=== PATIENT | female | born 1970 | race Caucasian/White ===

== ENCOUNTER 2023-12-04 18:09 | Inpatient (IN) | payer BC, MEDICARE, OTHER ==
[~2023-12-04] VITALS: Ht 165.1 cm; Wt 99.8 kg
[~2023-12-04 18:09] MED LIST: CYMBALTA 60MG60 MG PO; DESYREL 100MG100 MG PO; NEURONTIN300 MG/CAP PO; NEXIUM 40MG40 MG PO; ZYRTEC 10MG10 MG PO
--- NOTE | 2023-12-04 20:30 | NUR ---
Patient accepted. Will be arriving via EMS.
[2023-12-04 21:45] VITALS: BP 81/57
[2023-12-04 21:52] VITALS: BP 89/60
[2023-12-04 21:57] VITALS: BP 81/57
[2023-12-04] MEDS ORDERED: Vasopressin 20 UNITS in NS 100 ML IV PRN (23:00)
[2023-12-04 23:15] VITALS: BP 83/48
[2023-12-04] MEDS ORDERED: AMITRIPTYLINE H50 M1 PO (23:24)
[2023-12-04] MEDS ORDERED: PERCOCET 325 MG1 TAB PO (23:24)
[2023-12-04] MEDS ORDERED: ALDACTONE50 MG PO (23:24)
[2023-12-04] MEDS ORDERED: ATARAX 25MG25 MG/TAB PO (23:25)
[2023-12-04] MEDS ORDERED: BUSPIRONE HCL7.5 MG PO (23:26)
[2023-12-04] MEDS ORDERED: BUMEX2 MG PO (23:26)
[2023-12-04] MEDS ORDERED: CENA K20 MEQ/15 PO (23:26)
[2023-12-04] MEDS ORDERED: DYAZIDE 25 MG-31 CAP PO (23:27)
[2023-12-04] MEDS ORDERED: FLEXERIL 1010 MG/TAB PO (23:27)
[2023-12-04] MEDS ORDERED: PRIL40 PO (23:28)
[2023-12-04] MEDS ORDERED: FLORINEF ACETA0.1 MG PO (23:28)
[2023-12-04] MEDS ORDERED: REGLAN 10MG10 MG/TAB PO ×2 (23:29)
[2023-12-04] MEDS ORDERED: ZOFRAN ODT4 MG PO (23:30)
[2023-12-04] MEDS ORDERED: LIPITOR20 MG PO (23:31)
[2023-12-04] MEDS ORDERED: NS 1,000 ML IV SCH (23:45)
[2023-12-05] VITALS (516 sets, daily range): BP systolic 83–103; BP diastolic 52–72; PULSE 86–104; TEMP 97.8–98.6; O2SAT 94–100
[2023-12-05] MEDS ORDERED: Albuterol/Ipratropium 3 MG-0.5 MG/3 ML Neb Soln IH PRN (00:45)
[2023-12-05 00:53] LABS: ARTERIAL BLD GAS O2 SATURATION 99.1 % (92-100); ARTERIAL BLD GAS TCO2 CT 21.5; ARTERIAL BLOOD GAS BASE EXCESS 0.2 (-2-2); ARTERIAL BLOOD GAS HCO3 20.7 meq/L (22-26); ARTERIAL BLOOD GAS pH 7.58 (7.35-7.45)
[2023-12-05 00:54] LABS: ARTERIAL BLOOD GAS PCO2 22.9 mmHg (35-45); ARTERIAL BLOOD GAS PO2 155.8 mmHg (80-100)
[2023-12-05 01:15] LABS: INR 1.4 (0.8-3.0); PROTHROMBIN TIME 15.4 SECONDS (9.7-12.8)
[2023-12-05 01:31] LABS: ALBUMIN 1.7 g/dL (3.5-5.0); BILIRUBIN,TOTAL 3.1 mg/dL (0.2-1.2); CREATININE, serum 0.95 mg/dL (0.57-1.11); MAGNESIUM 1.2 mg/dL (1.6-2.6); TOTAL PROTEIN 5.7 g/dl (6.2-8.1)
[2023-12-05 01:41] LABS: POTASSIUM 2.2 mEq/L (3.5-4.5)
[2023-12-05 01:52] LABS: BASO # 0.1 K/mm3 (0.0-0.2); BASO % 0.4 % (0.0-2.0); EOS # 0.2 K/mm3 (0.0-0.7); GRAN # 11.9 K/mm3 (1.4-6.5); GRAN % 78.4 % (42.2-75.2); HEMATOCRIT 30.4 % (37.0-47.0); HEMOGLOBIN 10.8 g/dl (12.5-16.0); LYMPH # 1.6 K/mm3 (1.2-3.4); LYMPH % 10.8 % (20.0-51.0); MEAN CELL VOLUME 102 fl (80.0-100.0); MEAN CORPUSCULAR HEMOGLOBIN 36 pg (27-31); MEAN CORPUSCULAR HGB CONC 36 g/dl (33.0-37.0); MEAN PLATELET VOLUME 9.8 fl (7.4-10.4); MONO # 1.3 K/mm3 (0.1-0.6); MONO % 8.3 % (1.7-9.3); PLATELET COUNT 227 K/mm3 (130-400); RED BLOOD COUNT 2.99 M/mm3 (4.10-5.30); REDCELL DISTRIBUTION WIDTH-CV 14.7 % (11.5-14.5)
[2023-12-05 01:58] LABS: TRICYCLIC ANTIDEPRESS URINE POSITIVE (NEGATIVE)
[2023-12-05] MEDS ORDERED: Potassium Chloride 100 ML IV SCH (02:00)
[2023-12-05] MEDS ORDERED: Magnesium Sulfate 4% 50 ML IV ONE (02:00)
[2023-12-05] MEDS ORDERED: *Potassium Replacement Protocol MC SCH (02:00)
[2023-12-05] MEDS ORDERED: Potassium Phoshate 10 MM in NS 250 ML IV ONE (02:00)
[2023-12-05 06:18] LABS: HEMOGLOBIN 10.6 g/dl (12.5-16.0); MEAN CELL VOLUME 102 fl (80.0-100.0); MEAN CORPUSCULAR HEMOGLOBIN 35 pg (27-31); MEAN CORPUSCULAR HGB CONC 35 g/dl (33.0-37.0); MEAN PLATELET VOLUME 9.7 fl (7.4-10.4); PLATELET COUNT 245 K/mm3 (130-400); RED BLOOD COUNT 3.01 M/mm3 (4.10-5.30); REDCELL DISTRIBUTION WIDTH-CV 14.9 % (11.5-14.5)
[2023-12-05 06:22] LABS: HEMATOCRIT 30.7 % (37.0-47.0)
[2023-12-05 06:38] LABS: ALBUMIN 1.6 g/dL (3.5-5.0); BILIRUBIN,TOTAL 3.1 mg/dL (0.2-1.2); CALCIUM 7.8 mg/dL (8.4-10.2); CREATININE, serum 0.87 mg/dL (0.57-1.11); TOTAL PROTEIN 5.6 g/dl (6.2-8.1)
--- NOTE | 2023-12-05 07:00 | NUR ---
Report received from CHRISTINA Ramirez; patient currently resting in bed with levo, NS, and electrolytes running through her peripheral IVs. Patient has 3 periperal IVs/INTs, and a Ba catheter in place; no other lines or tubes are in place at this time.
[2023-12-05 07:05] LABS: BAND 3 % (0-10); EOSINOPHIL 1 % (0-4); LYMPHOCYTE 13 % (20.0-51.0); NEUTROPHILS 75 % (42.0-75.2)
[2023-12-05 07:06] LABS: PLATELET ESTIMATE NORMAL (NORMAL); STOMATOCYTE 1+
[2023-12-05] MEDS ORDERED: Nicotine 21 MG DAILY PATCH TD SCH (09:00)
[2023-12-05] MEDS ORDERED: Cyanocobalamin (Vit B-12) 1,000 MCG TAB PO SCH (10:45)
[2023-12-05] MEDS ORDERED: Cholecalciferol (Vit D3) 1000 Units TAB PO SCH (10:45)
[2023-12-05] MEDS ORDERED: Folic Acid 1 MG TAB PO SCH (10:45)
[2023-12-05] MEDS ORDERED: Magnesium Sulfate 2 GM/50 ML IV SOLN IV ONE (10:45)
[2023-12-05] MEDS ORDERED: Thiamine 100 MG TAB PO SCH (10:45)
[2023-12-05] MEDS ORDERED: MACROBID 1100 MG/CAP PO (11:00)
[2023-12-05] MEDS ORDERED: CYMBALTA 60MG60 MG PO (11:04)
[2023-12-05] MEDS ORDERED: SINEQUAN 5050 MG/CAP PO (11:07)
[2023-12-05] MEDS ORDERED: cefTRIAXone 1 G in Water For Injection,Sterile 10 ML IV SCH (14:00)
--- NOTE | 2023-12-05 14:19 | NUR ---
dish room worker attended clinical rounds and met with patient and spouse to complete discharge assessment. Patient resides in her home, with spouse, in [place], [place]. Patient's primary care provider is Dr Gates in [place]. Patient is normally independent with her activities of daily living and spouse works outside the home. Patient and spouse state they previously completed advance directives, however lost them and wish to complete again. Worker provided advance paperwork and confirmed that we will wait until all of patient's confusion, possible due to infection, clears. Patient utilizes [facility] and they bubble pack meds for patient. Patient has a walker and spouse built a ramp into their house. Worker confirmed, with spouse, that patient has [employer] [place], Medicare A/B and . Discharge plan: Home with spouse.
[2023-12-05] MEDS ORDERED: Ibuprofen 200 MG TAB PO ONE (15:15)
[2023-12-06] VITALS (108 sets, daily range): BP systolic 87–122; BP diastolic 54–71; PULSE 76–98; TEMP 97.6–98.6; O2SAT 95–100
[2023-12-06 05:06] LABS: HEMOGLOBIN 10.4 g/dl (12.5-16.0); MEAN CORPUSCULAR HEMOGLOBIN 37 pg (27-31); MEAN CORPUSCULAR HGB CONC 34 g/dl (33.0-37.0); MEAN PLATELET VOLUME 9.4 fl (7.4-10.4); PLATELET COUNT 229 K/mm3 (130-400); RED BLOOD COUNT 2.85 M/mm3 (4.10-5.30); REDCELL DISTRIBUTION WIDTH-CV 14.9 % (11.5-14.5)
[2023-12-06 05:12] LABS: HEMATOCRIT 30.5 % (37.0-47.0); MEAN CELL VOLUME 107 fl (80.0-100.0)
[2023-12-06 05:18] LABS: MAGNESIUM 1.6 mg/dL (1.6-2.6); PHOSPHOROUS 2.4 mg/dL (2.3-4.7)
[2023-12-06 05:40] LABS: ALANINE AMINOTRANSFERASE 27 U/L (0-55); ALBUMIN 1.6 g/dL (3.5-5.0); ALKALINE PHOSPHATASE 334 U/L (40-150); ANION GAP 22 mmol/L (7-16); AST,SGOT 53 U/L (5-34); BILIRUBIN,TOTAL 2.3 mg/dL (0.2-1.2); BLOOD UREA NITROGEN < 5 mg/dL (10-20); CALCIUM 7.6 mg/dL (8.4-10.2); CHLORIDE 95 mEq/L (98-107); CREATININE, serum 0.67 mg/dL (0.57-1.11); GLUCOSE 76 mg/dL (70-99); SODIUM 139 mEq/L (136-145); TOTAL PROTEIN 4.9 g/dl (6.2-8.1)
[2023-12-06 05:42] LABS: POTASSIUM 2.5 mEq/L (3.5-4.5)
[2023-12-06 05:51] LABS: EOSINOPHIL 4 % (0-4); LYMPHOCYTE 14 % (20.0-51.0); METAMYELOCYTE 3 % (0-0); NEUTROPHILS 74 % (42.0-75.2)
[2023-12-06 05:52] LABS: PLATELET ESTIMATE NORMAL (NORMAL)
[2023-12-06] MEDS ORDERED: Potassium Chloride 100 ML IV SCH (07:00)
--- NOTE | 2023-12-06 07:38 | NUR ---
Report received from CHRISTINA Moran. Reviewed overnight events and labs. Pt remains on a little bit of levophed. Call light wihtin reach. Will continue with POC.
[2023-12-06] MEDS ORDERED: Magnesium Oxide 400 MG TAB PO SCH (10:44)
[2023-12-06] MEDS ORDERED: busPIRone 7.5 MG TABLET PO SCH (10:45)
[2023-12-06] MEDS ORDERED: Magnesium Sulfate 4% 50 ML IV ONE (10:45)
[2023-12-06] MEDS ORDERED: hydrOXYzine HCl 25 MG TAB PO PRN (10:45)
[2023-12-06] MEDS ORDERED: Fludrocortisone 0.1 MG TAB PO SCH (10:45)
[2023-12-06] MEDS ORDERED: Omeprazole 40 MG **** subs to Pantoprazole 40 MG PO SCH (10:45)
[2023-12-06] MEDS ORDERED: Doxepin 25 MG CAP PO SCH (10:46)
--- NOTE | 2023-12-06 11:25 | NUR ---
Data: Patient's accepted Fence Erector Supervisor visit offered during Fence Erector Supervisor rounds. Patient was sleeping; woke during visit. Assessment: Patient is feeling "closed-in" being in a room with no windows. Both desired prayer for discharge. Plan of care: Fence Erector Supervisor prayed for enough healing to go to another room; and for a quick discharge. Both thanked Fence Erector Supervisor for the visit. Chaplains will remain available as needed/requested while Patient is admitted to this hospital.
[2023-12-06] MEDS ORDERED: Metoclopramide 10 MG TAB PO SCH (12:00)
--- NOTE | 2023-12-06 17:48 | NUR ---
Report called to CHRISTINA Pradhan. All questions answered. Dressing to right IJ changed.
--- NOTE | 2023-12-06 18:49 | NUR ---
Patient arrived to the medical unit, alrt and oriented x 4, SBP 98/54. Getting fluis 125 mls\hr. Jaunice skin. RIJ triple lumen. Wound on RLE wrapped, CDI. Catheter wong in place, clear yellow output. Report will be given to night RN.
--- NOTE | 2023-12-06 20:30 | NUR ---
Initial shift assessment done- states having some chronic back pain, would like pain med if possible,, will call [facility] about pain and also B/P is borderline low 87/58, map 65. SCD,s put on pt, Ba with clear femi urine, did put on a mepilex to coccyx,, has 2 dime size open areas ,,, IV fluids of NS at 125cc/hr to Right IJ. Pt alert/oriented x4, is jaundiced.
[2023-12-06] MEDS ORDERED: Amitriptyline 50 MG TAB PO SCH (21:00)
--- NOTE | 2023-12-06 21:00 | NUR ---
Called [facility] regarding low blood pressure 87/58 with MAP of 65,, she states she is ok with that- wants the MAP to be 65,,, aslo talked about pts chronic back pain-- pt would like something for the pain. [facility] did order a one time Oxycodone 5 mg p.o order,,, pt very appreciative of getting something for pain.
[2023-12-06] MEDS ORDERED: oxyCODONE 5 MG TAB PO ONE (21:30)
[2023-12-07 03:55] VITALS: BP 92/57; PULSE 90; TEMP 98.2
--- NOTE | 2023-12-07 05:53 | NUR ---
Slept very good, does not want to be repositioned at this time-states shes really comfortable, 500cc out of Ba this shift, denies pain at this time-
[2023-12-07 08:09] VITALS: BP 93/66; PULSE 97; TEMP 98.3
[2023-12-07 08:48] LABS: MEAN CELL VOLUME 108 fl (80.0-100.0); MEAN CORPUSCULAR HGB CONC 33 g/dl (33.0-37.0); MEAN PLATELET VOLUME 9.8 fl (7.4-10.4); PLATELET COUNT 214 K/mm3 (130-400); RED BLOOD COUNT 2.62 M/mm3 (4.10-5.30)
[2023-12-07 08:50] LABS: HEMATOCRIT 28.3 % (37.0-47.0); HEMOGLOBIN 9.3 g/dl (12.5-16.0); MEAN CORPUSCULAR HEMOGLOBIN 35 pg (27-31)
[2023-12-07 09:21] LABS: ALBUMIN 1.3 g/dL (3.5-5.0); ALKALINE PHOSPHATASE 304 U/L (40-150); ANION GAP 16 mmol/L (7-16); BILIRUBIN,TOTAL 1.9 mg/dL (0.2-1.2); CALCIUM 7.6 mg/dL (8.4-10.2); CHLORIDE 100 mEq/L (98-107); CREATININE, serum 0.59 mg/dL (0.57-1.11); POTASSIUM 3.1 mEq/L (3.5-4.5); SODIUM 139 mEq/L (136-145); TOTAL PROTEIN 4.8 g/dl (6.2-8.1)
[2023-12-07 09:24] LABS: BLOOD UREA NITROGEN < 5 mg/dL (10-20); GLUCOSE 60 mg/dL (70-99)
[2023-12-07 10:02] LABS: ALANINE AMINOTRANSFERASE 20 U/L (0-55)
--- NOTE | 2023-12-07 10:19 | NUR ---
Patient resting in bed, at bedside. PT alert and oriented, getting fluids per orders. Cath wong in place, clear fmei output. BLE edema, dressing in RLE, CDI. Assessment completed, meds given. No further needs at this time. Call light within reach.
[2023-12-07 10:42] LABS: AST,SGOT 55 U/L (5-34)
[2023-12-07] MEDS ORDERED: Potassium Bicarbonate/Citrate 20 MEQ Effervescent TAB PO SCH (11:30)
[2023-12-07 12:09] VITALS: BP 90/60; PULSE 95; TEMP 98.1
[2023-12-07 12:13] LABS: BAND 3 % (0-10); LYMPHOCYTE 29 % (20.0-51.0); NEUTROPHILS 65 % (42.0-75.2)
[2023-12-07 12:14] LABS: ANISOCYTOSIS 1+; PLATELET ESTIMATE NORMAL (NORMAL)
[2023-12-07] MEDS ORDERED: oxyCODONE 5 MG TAB PO ONE (14:45)
--- NOTE | 2023-12-07 16:19 | NUR ---
Patient assisted to the commode with help. PT had a large loose mustard BM. Pt complains of pain in her back, call placed to Dr. Last, ordered a dose of oxy 5mg once. Pt educated about her low BP and opiod use. Pt stated understanding.
[2023-12-07 17:02] VITALS: BP 87/59; PULSE 109
[2023-12-07 19:32] VITALS: BP 113/63; PULSE 107; TEMP 97.6
--- NOTE | 2023-12-07 20:30 | NUR ---
Shift assessment complete. NS running at 125mL/hr. Patient reporting headache and back pain /. Denies any chest pain, palpitations, shortness of breath, nausea. Currently stable on room air. Call light is within reach. Bed is locked and in low position.
[2023-12-07] MEDS ORDERED: Acetaminophen 325 MG TAB PO PRN (21:00)
[2023-12-08 01:01] VITALS: BP 98/53; PULSE 105; TEMP 100.2
[2023-12-08 05:26] VITALS: BP 99/61; PULSE 95; TEMP 97.9
[2023-12-08 08:00] VITALS: BP 110/67; PULSE 99; TEMP 98.7
[2023-12-08 09:02] LABS: ANION GAP 14 mmol/L (7-16); CALCIUM 7.7 mg/dL (8.4-10.2); CHLORIDE 103 mEq/L (98-107); CREATININE, serum 0.54 mg/dL (0.57-1.11); MAGNESIUM 1.5 mg/dL (1.6-2.6); POTASSIUM 3.6 mEq/L (3.5-4.5); SODIUM 139 mEq/L (136-145)
[2023-12-08 09:04] LABS: BLOOD UREA NITROGEN < 5 mg/dL (10-20); GLUCOSE 68 mg/dL (70-99)
--- NOTE | 2023-12-08 09:15 | NUR ---
PT LAYING IN BED UPON ENTERING. ASSESSMENT DONE, MEDS GIVEN PER ORDER. PT REPORTS 8/10 BACK PAIN AND GIVEN PRN TYLENOL. MEI DRAINING WITHOUT DIFFICULTY. RIGHT IJ IN PLACE, ALL PORTS FLUSH WITH BLOOD RETURN. NS RUNNING AT 125 MLS/HR PER ORDER. PT DENIES NEEDS. WOUND TO RIGHT CALF DRESED WITH GAUZE AND SECURED, NO DRAINAGE NOTED. PT DENIES NEEDS. BED IN LOWEST POSITION, CALL LIGHT IN REACH, BED ALARM ON
[2023-12-08] MEDS ORDERED: Potassium Chloride 100 ML IV SCH (11:15)
[2023-12-08 12:09] VITALS: BP 99/67; PULSE 101; TEMP 98.7
[2023-12-08] MEDS ORDERED: CEFTIN500 MG PO (12:35)
[2023-12-08] MEDS ORDERED: MASON NATURAL2000 IU PO (12:39)
--- NOTE | 2023-12-08 14:02 | NUR ---
PT FLAT IN BED AND DRESSING REMOVED FROM RIGHT TRIPLE IJ. SMALL SKIN TEAR NOTED AFTER REMOVING DRESSING. SUTURES REMOVED AND CENTRAL REMOVED. THIS NURSE HELD PRESSURE ON SITE FOR 15 MINS. PCT AT BEDSIDE GIVING PT A BEDBATH. PT NOTIFIED OF ANOTHER 15 MINS OF FLAT TIME BEFORE DISCHARGE AND VERBALIZED UNDERSTANDING, AT BEDSIDE. BED IN LOWEST POSITION, CALL LIGHT IN REACH
--- NOTE | 2023-12-08 15:10 | NUR ---
PT DRESSED AND SITTING ON SIDE OF BED UPON ENTERING. DISCHARGE INSTRUCTIONS GIVEN, PT AND VERBALIZED UNDERSTANDING. PT ESCORTED TO PERSONAL VEHICLE VIA WHEELCHAIR BY PCT.
== END 2023-12-08 15:10 | disposition home or self-care (01) | DRG 871 ==
LOC: ICU 18:09 → MEDICAL 21:33 → ICU 21:33 → MEDICAL 12-06 18:40
PROVIDERS: Internal Medicine; Nurse Practitioner Family; ADMIT Internal Medicine
PROC: 02HV33Z Insertion of Infusion Device into Superior Vena Cava, Percutaneous Approach (ICD-10-PCS; principal; 2023-12-05)
DX: A41.9 Sepsis, unspecified organism (principal); G93.41 Metabolic encephalopathy; R65.21 Severe sepsis with septic shock; E87.20 Acidosis, unspecified; E87.1 Hypo-osmolality and hyponatremia; N17.9 Acute kidney failure, unspecified; N39.0 Urinary tract infection, site not specified; I95.9 Hypotension, unspecified; D53.9 Nutritional anemia, unspecified; E87.8 Other disorders of electrolyte and fluid balance, not elsewhere classified; E87.6 Hypokalemia; G89.29 Other chronic pain; J44.9 Chronic obstructive pulmonary disease, unspecified; K76.0 Fatty (change of) liver, not elsewhere classified; R63.4 Abnormal weight loss; E78.5 Hyperlipidemia, unspecified; G47.33 Obstructive sleep apnea (adult) (pediatric); F17.210 Nicotine dependence, cigarettes, uncomplicated; M54.9 Dorsalgia, unspecified; F31.9 Bipolar disorder, unspecified; K21.9 Gastro-esophageal reflux disease without esophagitis; Z91.81 History of falling; Z91.198 Patient's noncompliance with other medical treatment and regimen for other reason; Z90.710 Acquired absence of both cervix and uterus; Z90.49 Acquired absence of other specified parts of digestive tract; Z79.899 Other long term (current) drug therapy; Z88.5 Allergy status to narcotic agent; Z88.0 Allergy status to penicillin; Z88.2 Allergy status to sulfonamides; Z88.6 Allergy status to analgesic agent; Z91.040 Latex allergy status; Z23 Encounter for immunization; Z68.32 Body mass index [BMI] 32.0-32.9, adult
CPT/HCPCS: J0696; J3475; J3480; J7030; J7050; J7060

== ENCOUNTER 2024-01-30 13:52 | Inpatient (IN) | payer BC, MEDICARE, OTHER ==
[~2024-01-30] VITALS: Ht 162.6 cm; Wt 95.1 kg
[~2024-01-30 13:52] MED LIST changes: +ALDACTONE50 MG PO; +AMITRIPTYLINE H50 M1 PO; +ATARAX 25MG25 MG/TAB PO; +BUMEX2 MG PO; +BUSPIRONE HCL7.5 MG PO; +CEFTIN500 MG PO; +CENA K20 MEQ/15 PO; +DYAZIDE 25 MG-31 CAP PO; +FLEXERIL 1010 MG/TAB PO; +FLORINEF ACETA0.1 MG PO; +LIPITOR20 MG PO; +MACROBID 1100 MG/CAP PO; +MASON NATURAL2000 IU PO; +PERCOCET 325 MG1 TAB PO; +PRIL40 PO; +REGLAN 10MG10 MG/TAB PO; +SINEQUAN 5050 MG/CAP PO; +ZOFRAN ODT4 MG PO
[2024-01-30] MEDS ORDERED: NS 500 ML IV PRN (14:15)
[2024-01-30] MEDS ORDERED: Vasopressin 20 UNITS in NS 100 ML IV PRN (14:15)
[2024-01-30] MEDS ORDERED: Ondansetron 4 MG/2 ML VIAL IV PRN (14:30)
[2024-01-30] MEDS ORDERED: Albuterol/Ipratropium 3 MG-0.5 MG/3 ML Neb Soln IH PRN ×2 (14:30→18:45)
[2024-01-30] MEDS ORDERED: Acetaminophen 500 MG TAB PO PRN (14:30)
[2024-01-30] MEDS ORDERED: NS 1,000 ML IV ONE (14:30)
[2024-01-30] MEDS ORDERED: NS 1,000 ML IV SCH (14:30)
[2024-01-30] MEDS ORDERED: Cefepime 1 G in Water For Injection,Sterile 10 ML IV SCH (15:00)
[2024-01-30 15:19] LABS: ARTERIAL BLD GAS O2 SATURATION 91.3 % (92-100); ARTERIAL BLD GAS TCO2 CT 14.6; ARTERIAL BLOOD GAS BASE EXCESS -6.9 (-2-2); ARTERIAL BLOOD GAS HCO3 14.1 meq/L (22-26); ARTERIAL BLOOD GAS PO2 62.5 mmHg (80-100)
[2024-01-30 15:20] LABS: ARTERIAL BLOOD GAS PCO2 18.3 mmHg (35-45)
[2024-01-30] MEDS ORDERED: FERROUS SU325 MG/TAB PO (15:43)
[2024-01-30] MEDS ORDERED: MULTIPLE VITAMI1 CAP PO (15:44)
[2024-01-30] MEDS ORDERED: PROAIR HFA0.09 MG/AC IH (15:45)
[2024-01-30] MEDS ORDERED: BUMEX 1MG TA1 MG/TA1 PO (15:48)
[2024-01-30] MEDS ORDERED: DAZIDOX10 MG PO (15:49)
[2024-01-30] MEDS ORDERED: ALDACTONE 25MG25 M1 PO (15:51)
[2024-01-30] MEDS ORDERED: PEPCID 20MG TAB20 MG PO (15:52)
[2024-01-30 16:00] VITALS: BP 98/56; PULSE 105; TEMP 98.2
[2024-01-30 16:25] LABS: URINE APPEARANCE CLOUDY (CLEAR/HAZY); URINE BLOOD NEGATIVE (NEGATIVE); URINE COLOR Dark Yellow (YELLOW); URINE GLUCOSE NEGATIVE (NEGATIVE); URINE KETONE NEGATIVE (NEGATIVE); URINE NITRATE POSITIVE (NEGATIVE); URINE PROTEIN(semi-quant) NEGATIVE (NEGATIVE); URINE UROBILINOGEN 0.2 E.U/dL (0.2-1.0)
[2024-01-30 16:42] LABS: MUCOUS PRESENT (NOT PRESENT); SQUAMOUS EPITHELIAL 0-2 /hpf (0-10); URINE BACTERIA MANY /hpf (NONE SEEN); URINE RBC 0-2 /hpf (0-2)
[2024-01-30 16:56] LABS: COLLECTION METHOD CLEAN CATCH
[2024-01-30] MEDS ORDERED: Vancomycin 1.5 GM,Special Dose/Pharmacy Prepared 1.5 GM in NS 250 ML IV SCH (17:00)
[2024-01-30] MEDS ORDERED: Iohexol 350 - 100 ML VIAL IV ONE (17:08)
--- NOTE | 2024-01-30 17:52 | NUR ---
Patient requiring 13L supplemental 02 to remain at 90%. Dr. Quevedo at bedside to see patient. Dr. Quevedo discussed plan of care with patient and the severity of her situation. Dr. Quevedo recommended intubation if patient is agreeable. Patient is unsure of her decision and wishes to speak to her before proceeding with any escalation in care. Called , Shaq, and he spoke with Dr. Quevedo on the phone. He will also be coming in a few minutes to speak with the patient in person. After arriving and discussing options the patient and are agreeable to intubation. Anesthesia notified.
[2024-01-30] MEDS ORDERED: Doxycycline Hyclate 100 MG in NS 150 ML IV SCH (18:00)
[2024-01-30] MEDS ORDERED: Fludrocortisone 0.1 MG TAB PO SCH (18:15)
[2024-01-30] MEDS ORDERED: Naloxone 0.4 MG/ML VIAL IV PRN (18:45)
[2024-01-30] MEDS ORDERED: fentaNYL 100 ML IV SCH (18:45)
--- NOTE | 2024-01-30 18:58 | NUR ---
Anethesia at bedside; intubation completed at 1858. VS stable during procedure. Confirmed color change and auscultated lungs to confirm placement via RT.
[2024-01-30] MEDS ORDERED: Succinylcholine PF 200 MG/10 ML SYRINGE IV ONE (19:26)
--- NOTE | 2024-01-30 19:30 | NUR ---
Received report from CHRISTINA López. Pt is intubated and is on propofol and fentanyl, vasopressin, and levophed at this time. Pt's vitals are stable at this time. Ba in place with no kinks in tubing at this time. Will continue with pt care.
--- NOTE | 2024-01-30 19:34 | NUR ---
Vent settings changed per Dr. Quevedo
[2024-01-30 20:00] VITALS: BP 103/76; PULSE 101; TEMP 98.4
[2024-01-30] MEDS ORDERED: Albuterol/Ipratropium 3 MG-0.5 MG/3 ML Neb Soln IH SCH ×2 (20:00)
[2024-01-30] MEDS ORDERED: Insulin Lispro (HumaLOG) SQ SCH ×2 (20:06→21:00)
[2024-01-30] MEDS ORDERED: Dextrose 50% Water 25 GM/50 ML SYRINGE IV PRN (20:15)
[2024-01-30] MEDS ORDERED: Glucagon 1 MG VIAL IM PRN (20:15)
[2024-01-30] MEDS ORDERED: Dextrose (Glucose) 15 GM (4 x 3.75 GM) Chewable TABLET PACK PO PRN (20:15)
[2024-01-30 20:59] LABS: ARTERIAL BLD GAS O2 SATURATION 97.1 % (92-100); ARTERIAL BLD GAS TCO2 CT 16.5; ARTERIAL BLOOD GAS BASE EXCESS -8.5 (-2-2); ARTERIAL BLOOD GAS HCO3 15.6 meq/L (22-26); ARTERIAL BLOOD GAS PCO2 27.8 mmHg (35-45); ARTERIAL BLOOD GAS PO2 105.5 mmHg (80-100); ARTERIAL BLOOD GAS pH 7.37 (7.35-7.45)
--- NOTE | 2024-01-30 21:07 | NUR ---
Settings changed per Dr. Quevedo.
[2024-01-31] VITALS: BP 118/72; PULSE 93; TEMP 97.4
[2024-01-31 01:38] VITALS: BP 118/70
[2024-01-31 04:00] VITALS: BP 103/64; PULSE 97; TEMP 97.4
[2024-01-31 05:30] LABS: ARTERIAL BLD GAS O2 SATURATION 99.2 % (92-100); ARTERIAL BLD GAS TCO2 CT 15.7; ARTERIAL BLOOD GAS BASE EXCESS -7.7 (-2-2); ARTERIAL BLOOD GAS HCO3 14.9 meq/L (22-26); ARTERIAL BLOOD GAS pH 7.42 (7.35-7.45)
[2024-01-31 05:32] LABS: ARTERIAL BLOOD GAS PCO2 23.5 mmHg (35-45)
[2024-01-31 05:33] LABS: ARTERIAL BLOOD GAS PO2 198.5 mmHg (80-100)
[2024-01-31 06:07] LABS: HEMOGLOBIN 11.3 g/dl (12.5-16.0); MEAN CELL VOLUME 96 fl (80.0-100.0); MEAN CORPUSCULAR HEMOGLOBIN 33 pg (27-31); MEAN CORPUSCULAR HGB CONC 34 g/dl (33.0-37.0); MEAN PLATELET VOLUME 10.7 fl (7.4-10.4); PLATELET COUNT 211 K/mm3 (130-400); RED BLOOD COUNT 3.47 M/mm3 (4.10-5.30); REDCELL DISTRIBUTION WIDTH-CV 17.8 % (11.5-14.5)
[2024-01-31 06:15] LABS: INR 2.3 (0.8-3.0); PROTHROMBIN TIME 24.8 SECONDS (9.7-12.8)
[2024-01-31 06:16] LABS: HEMATOCRIT 33.4 % (37.0-47.0)
--- NOTE | 2024-01-31 07:02 | NUR ---
SEDATION VACATION NOT DONE DUE TO PT JUST BEING INTUBATED AT THE BEGINNING OF THE SHIFT. PT NEEDS TIME TO REST.
--- NOTE | 2024-01-31 07:20 | NUR ---
Pt had an uneventful night. Pt's vitals were stable throughout the night. Pt on levophed, vasopressin, propofol, fentanyl, NS and ABX. Pt had a critical WBC count and was passed on to day shift nurse. Pt had adequate urine output and no kinks in tubing. Pt did not follow commands this shift. Gave report to day shift nurse.
[2024-01-31 07:39] LABS: BAND 1 % (0-10)
[2024-01-31 07:40] LABS: LYMPHOCYTE 5 % (20.0-51.0)
[2024-01-31 07:41] LABS: ANISOCYTOSIS 1+; NEUTROPHILS 89 % (42.0-75.2); PLATELET ESTIMATE NORMAL (NORMAL)
[2024-01-31 08:00] VITALS: BP 117/72; PULSE 86; TEMP 98.1
[2024-01-31] MEDS ORDERED: LR 1,000 ML IV SCH (08:30)
[2024-01-31 08:35] LABS: ALANINE AMINOTRANSFERASE 27 U/L (0-55); ALBUMIN 1.4 g/dL (3.5-5.0); ALKALINE PHOSPHATASE 338 U/L (40-150); ANION GAP 21 mmol/L (7-16); AST,SGOT 62 U/L (5-34); BILIRUBIN,TOTAL 6.7 mg/dL (0.2-1.2); CALCIUM 6.6 mg/dL (8.4-10.2); CHLORIDE 101 mEq/L (98-107); CREATININE, serum 0.81 mg/dL (0.57-1.11); GLUCOSE 203 mg/dL (70-99); SODIUM 135 mEq/L (136-145); TOTAL PROTEIN 5.2 g/dl (6.2-8.1)
[2024-01-31 08:36] LABS: BLOOD UREA NITROGEN < 5 mg/dL (10-20)
[2024-01-31 08:37] LABS: POTASSIUM 2.9 mEq/L (3.5-4.5)
[2024-01-31] MEDS ORDERED: *Potassium Replacement Protocol MC SCH (09:00)
[2024-01-31] MEDS ORDERED: Phytonadione (Vitamin K) 5 MG/5 ML Oral Susp PO SCH (09:00)
[2024-01-31] MEDS ORDERED: Potassium Chloride 100 ML IV SCH (09:00)
--- NOTE | 2024-01-31 09:21 | NUR ---
Patient is visably unwell. Intubated with 7.5 ETT, at 23 cm at the teeth, OG at 53 cm at the teeth. Levophed and Vasopressin infusing, Potassium 2.9, and is currently being replaced with 160 mEq. CO2 was 13, and both were reported to Dr. Turcios. INR is 2.3, therefore, Vitamin K was given and is order daily today. Iv fluids are running, abx are on board. At this time Dr. Last has called [facility] per Log Chain Worker advise to potentially transfer her for optimal chances. PIcc in place, wong is draining appropriately. Family is struggling with prognosis, jocelyne called for comfort. Family is bedside.
--- NOTE | 2024-01-31 09:45 | NUR ---
Patient is currently intubated, director social service met with patient's , Leonid, P# [phone], to discuss discharge planning. Leonid confirmed they live in [place]. Patient's PCP is at the [facility] in [place] with Aliya Gates. Pharmacy is [facility]. Insurance is [employer] [place], Medicare A and B and for Life. Leonid reported they had completed a DPOA-HC but have not been able to locate it. DME is walker, and oxygen at night through [facility]. Leonid reports he provides some assistance with ADLS for the patient and transports her to and from appointments. Patient was attempting to get home health services but Leonid reported Medicare stated she did not qualify for them. SW asked about the discharge plan, Leonid began to tear up and stated that the doctor reported she does not have a good prognosis. Leonid stated "I cannot lose her. If I do, there is no reason for me to be here." SW discussed any family and friend supports. Leonid reported he has some friends and his mother. Leonid reported patient's daughters are blaming him for the patient's current medical status and he has one kid but he is estranged from them. JENNIFER asked if she can call anyone for him, he stated no, he would call after speaking with Dr Last. SW left her phone number for support. SW notified patient's nurse about the comment the made. Form Graderamaya Chen was contacted and will visit with the patient and . Form Graderamaya Chen expressed she would speak with the about the suicide prevention phone number as well. JENNIFER was notified patient may transfer to another facility for more intensive care. SW notified patient's physician, Dr. Last, of the 's comment. Dr. Last stated patient may transfer today.
[2024-01-31 09:49] LABS: MAGNESIUM 1.6 mg/dL (1.6-2.6); PHOSPHOROUS 4.1 mg/dL (2.3-4.7)
--- NOTE | 2024-01-31 11:38 | NUR ---
Data: RN stated that family is dealing with making a choice about transferring to a higher level care facility or possibly comfort care. Shaq is making decisions. Patient's adult daughters possibly do not agree with his decisions. Assessment: Anticipatory grief is compounding pre-exisisting family issues. Accepting of prayer. Plan of Care: Bulk Sausage Casing Tier Off provided prayer. Bulk Sausage Casing Tier Off will be available as called by RN for follow-up spiritual care while Patient is admitted to this hospital.
[2024-01-31 12:00] VITALS: BP 114/73; PULSE 91; TEMP 97.7
--- NOTE | 2024-01-31 12:15 | NUR ---
Patient has had family bedside for a couple hours. She is resting comfortably with fent/ prop infusing. There is speculation that there is a possiblity that she will be transferred to , Dr. Last has made that phone call. If they deny her, family has concern that either she will pass here at [facility] or she will pass at , they may discuss comfort care for her. At this time, route of treatment is somewhat unclear. Family aware of potential scenarios and have made patient a DNR from Full Code status. Will continue to treat and provide supportive care.
[2024-01-31 16:02] VITALS: BP 116/72; PULSE 102; TEMP 97.8
--- NOTE | 2024-01-31 16:07 | NUR ---
Patient is being transferred to [facility] for specialized care. Report has been given at 1500 to CHRISTINA Hyde. Transportation is by air, flight team has been arranged for millroom supervisor between 1600 and 1700. Family has been notified of the timeline and room number/location. Patient is relatively stable; fentanyl, propofol, levophed, vasopressin, and IVF infusing withou difficulties. Wong is draining appropriately. Edema is +3 on thunk and BLE. BLE are weeping/moist from fluid that is third spacing. Skin is dry, jaundice, and scelaras are bright yellow. Urine in wong is bright peach colored, hazy. Extremities are cool to the touch, and pulses are becoming difficult to find. No responses or purposeful movements have been noted at this time. There are family dynamics that are complicating care for Ms. Katz. Security and warehouse production worker were notified of intimidating behaviors from son in law. Knocking on the ICU door, lottering in the hallways, and yelling at staff. He expressed concern about his not being able to see her mom after nursing staff had concern for safety with the patient. Earlier in the morning there were 5 family members in the room with the patient because of talk of comfort care if there was not a chance another hospital would except her. Then more family and friends arrived and were wanting to all be in the room at the same time, upwards of 12-15 people. I told everyone that they "needed to step out and there were way too many people in the room," requested they removed themselves and go to the ICU waiting room. Everyone got up and went to the waiting room. In no way were they not allowed to see her, but we have a limited visitor policy to decrease chances of medical management interference. Problems resolved with additional family members and friends left the hospital. Before flight team arrives, family was instructed they are able to come and visit with her within the hour, family is bedside now.
--- NOTE | 2024-01-31 17:23 | NUR ---
cafe worker was notified there was conflict with family members in the ICU. SW presented and there were around 5 family members in the hallway upset about not being able to enter the room. They were informed they could not all be in the room at this time while the nurse works with the patient but they could wait in the ICU waiting room. SW obtained the two daughter's information Kristine P# [phone] and Sofie P# [phone]. Sofie left the ICU area. JENNIFER spoke with Kristine whom expressed they were frustrated because they just found out that patient was made DNR and they were not notified. JENNIFER asked if she has a DPOA-HC, she stated she does not and called Leonid, patient's , over to the conversation. Leonid expressed he is the DPOA-HC but he does not have a copy of the form and unable to locate it. Leonid expressed all decisions would be made by him. JENNIFER contacted the [facility] to determine if they have a copy of the DPOA-HC. They were unable to locate any DPOA-HC in patient's file. JENNIFER attempted to contact the [facility] system, no answer. JENNIFER spoke with Nisha Bloom, SW director, whom advised to see if Dr. Last would speak with the daughters regarding the DNR status. JENNIFER spoke with Dr. Last whom explained he spoke with the and another family member this morning. Dr Last expressed patient's decided to make her DNR after they discussed patient's medical status and prognosis and he is the next of kin, so he is the decision maker. JENNIFER was notified patient will be transferred to [facility]
--- NOTE | 2024-01-31 17:43 | NUR ---
Flight crew arrived at 1610. Patient stable upon arrival and departure. VSS> Report given to flight nurse CHRISTINA Patel and Abdoulaye RN. Escorted with portable IV pumps and portable ventilator per previous settings. Family witnessed departure via helicopter. Left ICU room 2 at 1712.
--- NOTE | 2024-01-31 17:54 | NUR ---
CONTACTED FOR LEFT BEHIND PAIR OF GLASSES. STATED WILL RETURN TO PICK THEM UP 01/[address] TO [place].
== END 2024-01-31 17:12 | disposition short-term general hospital (02) | DRG 871 ==
LOC: ICU 13:52
PROVIDERS: Internal Medicine; ADMIT Internal Medicine
PROC: 0BH17EZ Insertion of Endotracheal Airway into Trachea, Via Natural or Artificial Opening (ICD-10-PCS; principal; 2024-01-30)
PROC: 02HV33Z Insertion of Infusion Device into Superior Vena Cava, Percutaneous Approach (ICD-10-PCS; 2024-01-30)
PROC: 5A1935Z Respiratory Ventilation, Less than 24 Consecutive Hours (ICD-10-PCS; 2024-01-30)
DX: A41.9 Sepsis, unspecified organism (principal); J18.1 Lobar pneumonia, unspecified organism; J96.01 Acute respiratory failure with hypoxia; R65.21 Severe sepsis with septic shock; E87.20 Acidosis, unspecified; J44.1 Chronic obstructive pulmonary disease with (acute) exacerbation; J90 Pleural effusion, not elsewhere classified; J44.0 Chronic obstructive pulmonary disease with (acute) lower respiratory infection; R18.8 Other ascites; E87.3 Alkalosis; Z66 Do not resuscitate; K74.60 Unspecified cirrhosis of liver; G89.4 Chronic pain syndrome; F31.9 Bipolar disorder, unspecified; D53.9 Nutritional anemia, unspecified; G47.33 Obstructive sleep apnea (adult) (pediatric); E78.5 Hyperlipidemia, unspecified; K21.9 Gastro-esophageal reflux disease without esophagitis; E80.6 Other disorders of bilirubin metabolism; I95.9 Hypotension, unspecified; K76.0 Fatty (change of) liver, not elsewhere classified; R74.01 Elevation of levels of liver transaminase levels; Z20.822 Contact with and (suspected) exposure to COVID-19; E88.09 Other disorders of plasma-protein metabolism, not elsewhere classified; E87.6 Hypokalemia; F17.210 Nicotine dependence, cigarettes, uncomplicated; R79.1 Abnormal coagulation profile; T45.515A Adverse effect of anticoagulants, initial encounter; E66.9 Obesity, unspecified; E87.70 Fluid overload, unspecified; Z79.899 Other long term (current) drug therapy; Z90.49 Acquired absence of other specified parts of digestive tract; Z91.199 Patient's noncompliance with other medical treatment and regimen due to unspecified reason; Z90.710 Acquired absence of both cervix and uterus; Z98.1 Arthrodesis status; Z88.5 Allergy status to narcotic agent; Z88.0 Allergy status to penicillin; Z88.2 Allergy status to sulfonamides; Z88.8 Allergy status to other drugs, medicaments and biological substances; Z88.6 Allergy status to analgesic agent; Z91.040 Latex allergy status; Z68.35 Body mass index [BMI] 35.0-35.9, adult
CPT/HCPCS: A4314; C1751; J0692; J1720; J1815; J2598; J2704; J3010; J3370; J3480; J7030; J7050; J7060; J7120; Q9967